=== PATIENT | female | born 1970 | race Caucasian/White ===

== ENCOUNTER 2018-01-28 07:19 | Emergency (ER) | payer BC ==
[2018-01-28 08:15] VITALS: BP 116/71
--- NOTE | 2018-01-28 10:23 | UC ---
Gail Cabral Elizabeth, scribed for Sarah Campbell DO on 01/28/18 at 0902 . Complaint Female HPI - HPI Summary HPI Summary: This patient is a 47 year old F presenting to [facility] with a chief complaint of dysuria since 1 day ago. The patient describes the pain as discomfort and burning. The patient rates the pain 1/10 in severity. Symptoms aggravated by urination. Symptoms alleviated by nothing. Patient denies increased frequency, hematuria, nausea, vomiting, and fever. Patient has hx of UTIs but reports that she has not had one in 3 years. - History Of Current Complaint Chief Complaint: UCGU Stated Complaint: UTI Time Seen by Provider: 01/28/18 08:17 Hx Obtained From: Patient Hx Last Menstrual Period: 01/13/18 Onset/Duration: Sudden Onset, Lasting Days - 1 day, Still Present Timing: Intermittent Severity Initially: Mild Severity Currently: Mild Pain Intensity: 1 Pain Scale Used: 0-10 Numeric Character: Burning Aggravating Factor(s): Urination Alleviating Factor(s): Nothing Associated Signs And Symptoms: Negative: Fever, Nausea, Vomiting(# Of Episodes = ) - Allergies/Home Medications Allergies/Adverse Reactions: Allergies Allergy/AdvReac Type Severity Reaction Status Date / Time sulfamethoxazole Allergy Rash Verified 01/28/18 08:06 [From Bactrim] trimethoprim [From Bactrim] Allergy Rash Verified 01/28/18 08:06 Home Medications: Home Medications Control 1 tab PO DAILY 01/28/18 [History] Levothyroxine Sodium [Synthroid] 50 mcg PO DAILY 01/28/18 [History Confirmed ] PMH/Surg Hx/FS Hx/Imm Hx Endocrine History: Hypothyroidism - Surgical History Surgical History: Yes Surgery Procedure, Year, and Place: c -sect x2, hernia repair - Family History Known Family History: Positive: None - Social History Alcohol Use: Occasionally Substance Use Type: None Smoking Status (MU): Never Smoked Tobacco - Immunization History Most Recent Tetanus Shot: unknown ?? Review of Systems Constitutional: Negative - NEGATIVE FEVER Gastrointestinal: Negative - NEGATIVE VOMITING, NEGATIVE NAUSEA Genitourinary: Negative - NEGATIVE HEMATURIA, Dysuria All Other Systems Reviewed And Are Negative: Yes Physical Exam - Summary Physical Exam Summary: Appearance: Well-Appearing, No Pain Distress, Well-Nourished Eyes: conjunctiva clear, no discharge ENT: Hearing grossly normal, no muffled/hoarse voice. Neck: Normal, Supple Respiratory/Lung Sounds: Lungs clear, Normal breath sounds, No respiratory distress, No accessory muscle use Cardiovascular: RRR, No murmur Abdomen: minimal suprapubic tenderness, Soft, no guarding, not distended Musculoskeletal: Normal Neurological: Alert, muscle tone normal Psychiatric: Normal, age appropriate behavior Skin: Normal, Warm, Dry, Normal color Triage Information Reviewed: Yes Vital Signs: Initial Vital Signs Temp 98.5 F 01/28/18 08:08 Pulse 53 01/28/18 08:08 Resp 16 01/28/18 08:08 BP 116/71 01/28/18 08:08 Pulse Ox 100 01/28/18 08:08 Vital Signs Reviewed: Yes Complaint Female Dx - Course Course Of Treatment: This patient is a 47 year old F reporting dysuria since 1 day ago. UA results reviewed with patient. Patient will be discharged with prescription for Diflucan and Macrodantin. The patient is agreeable with this plan. Medications reviewed. Allergies reviewed. - Differential Dx/Diagnosis Provider Diagnoses: Urinary tract infection (UTI) Discharge - Sign-Out/Discharge Documenting (check all that apply): Discharge/Admit/Transfer - Discharge Plan Condition: Stable Disposition: HOME Discharge Disposition Comment: discharge home Prescriptions: Fluconazole [Diflucan] 150 mg PO ONCE #2 tab Nitrofurantoin Macrocrystals* [Macrodantin 100 mg*] 100 mg PO BID #10 cap Patient Education Materials: Urinary Tract Infection in Women (DC) Referrals: Shi Mcgill MD [Primary Care Provider] - If Needed Additional Instructions: NITROFURANTOIN: You have received a prescription for nitrofurantoin (Macrodantin). This antibiotic is used for urinary tract infections. Persons with G-6-PD (glucose 6-phosphate dehydrogenase) deficiency should not take this medication. Women who are or nursing should notify the physician before taking this medicine. If you have ever had a problem caused by this medication in the past, be sure the physician is aware of it. Common side effects of this medicine include nausea, vomiting, or decreased appetite. Notify your physician if these side effects become severe. Immediately stop this medicine and call the physician if you develop cough , shortness of breath, chest pain, weakness, jaundice (yellow color of the skin and whites of the eyes), or a skin rash. ANYTIME YOU TAKE AN ANTIBIOTIC, IT IS IMPORTANT TO REPLENISH THE BODY'S SUPPLY OF "GOOD BACTERIA." YOU CAN GET GOOD BACTERIA FROM HIGH QUALITY CULTURED FOODS SUCH LOCAL YOGURT, SOUR KRAUT, TRUPTI NAEL, NATURALLY FERMENTED PICKLES AND PROBIOTIC DRINKS. YOU CAN ALSO GET GOOD BACTERIA FROM A PROBIOTIC SUPPLEMENT. ONLY TAKE THE FOLLOWING MEDICINE IF YOU DEVELOP SYMPTOMS OF A YEAST INFECTION. FLUCONAZOLE: Fluconazole (Diflucan) is an antifungal drug. It is useful for serious fungal infections, but is also excellent for oral or vaginal yeast infections. Diflucan interacts with some medicines. This is a concern if you are taking anticoagulants (such as Coumadin), phenytoin (Dilantin), cyclosporin, or oral hypoglycemics (such as tolbutamide, Orinase, glipizide, Glucotrol, glyburide, DiaBeta, Glynase, and Micronase). Be sure the doctor knows if you are taking one of these medicines. We don't know how Diflucan affects . If you are planning to become , discuss this with your doctor. Diflucan has few side effects. Minor side effects may include nausea, headache, or diarrhea. Call the doctor if you develop a skin rash, shortness of breath, or other new symptoms. The documentation as recorded by the Gail seymour Elizabeth accurately reflects the service I personally performed and the decisions made by me, Sarah Campbell DO.
--- NOTE | 2018-01-29 16:13 | UC ---
- Progress Note Progress Note: Culture grew E coli, no sensitivity obtained, if patient is not improving, have her follow up with PCP or UC. Discharge - Sign-Out/Discharge Documenting (check all that apply): Discharge/Admit/Transfer - Discharge Plan Condition: Stable Disposition: HOME Prescriptions: Fluconazole [Diflucan] 150 mg PO ONCE #2 tab Nitrofurantoin Macrocrystals* [Macrodantin 100 mg*] 100 mg PO BID #10 cap Patient Education Materials: Urinary Tract Infection in Women (DC) Referrals: Shi Mcgill MD [Primary Care Provider] - If Needed Additional Instructions: NITROFURANTOIN: You have received a prescription for nitrofurantoin (Macrodantin). This antibiotic is used for urinary tract infections. Persons with G-6-PD (glucose 6-phosphate dehydrogenase) deficiency should not take this medication. Women who are or nursing should notify the physician before taking this medicine. If you have ever had a problem caused by this medication in the past, be sure the physician is aware of it. Common side effects of this medicine include nausea, vomiting, or decreased appetite. Notify your physician if these side effects become severe. Immediately stop this medicine and call the physician if you develop cough , shortness of breath, chest pain, weakness, jaundice (yellow color of the skin and whites of the eyes), or a skin rash. ANYTIME YOU TAKE AN ANTIBIOTIC, IT IS IMPORTANT TO REPLENISH THE BODY'S SUPPLY OF "GOOD BACTERIA." YOU CAN GET GOOD BACTERIA FROM HIGH QUALITY CULTURED FOODS SUCH LOCAL YOGURT, SOUR KRAUT, TRUPTI NAEL, NATURALLY FERMENTED PICKLES AND PROBIOTIC DRINKS. YOU CAN ALSO GET GOOD BACTERIA FROM A PROBIOTIC SUPPLEMENT. ONLY TAKE THE FOLLOWING MEDICINE IF YOU DEVELOP SYMPTOMS OF A YEAST INFECTION. FLUCONAZOLE: Fluconazole (Diflucan) is an antifungal drug. It is useful for serious fungal infections, but is also excellent for oral or vaginal yeast infections. Diflucan interacts with some medicines. This is a concern if you are taking anticoagulants (such as Coumadin), phenytoin (Dilantin), cyclosporin, or oral hypoglycemics (such as tolbutamide, Orinase, glipizide, Glucotrol, glyburide, DiaBeta, Glynase, and Micronase). Be sure the doctor knows if you are taking one of these medicines. We don't know how Diflucan affects . If you are planning to become , discuss this with your doctor. Diflucan has few side effects. Minor side effects may include nausea, headache, or diarrhea. Call the doctor if you develop a skin rash, shortness of breath, or other new symptoms. - Billing Disposition and Condition Condition: STABLE Disposition: Home
== END 2018-01-28 09:24 | disposition home or self-care (01) ==
LOC: UCEAST 07:19
DX: N39.0 Urinary tract infection, site not specified (principal); B96.20 Unspecified Escherichia coli [E. coli] as the cause of diseases classified elsewhere; Z87.440 Personal history of urinary (tract) infections; E03.9 Hypothyroidism, unspecified; Z88.2 Allergy status to sulfonamides
CPT/HCPCS: 81003; 87086; 99212; G0463